=== PATIENT | female | born 1970 | race Caucasian/White ===

== ENCOUNTER 2018-09-12 11:05 | Day surgery (SDC) | payer BC, MEDICAID, MEDICARE ==
[2018-09-11 08:18] VITALS: BMI 40.9
[2018-09-12] MEDS ORDERED: Lactated Ringer's 500 ML IV ONE (12:09)
[2018-09-12] MEDS ORDERED: Propofol 10 mg/ml Inj (20 ML) ONE (13:59)
[2018-09-12] MEDS ORDERED: Midazolam 2 MG/2 ML VIAL ONE (13:59)
[2018-09-12] MEDS ORDERED: Silver Nitrate Topical - Stick ONE (14:26)
--- NOTE | 2018-09-12 14:41 | PCM.OP ---
Operative Report - Operative Report Date of Surgery/Procedure: 09/12/18 Time of Surgery/Procedure: 13:00 Surgeon: Marlo Anesthesia/Sedation: general mask Pre-Operative Diagnosis: abnormal uterine bleeding Post-Operative Diagnosis: endometrial polyp Indication for Surgery: abnormal uterine bleeding, thickened endometrium Operative Findings: 9cm uterus, 1.5cm uterine polyp on posterior endometrial wall, normal fallopian tube ostia Procedure/Operation Description: hysteroscopy, polypectomy, dilation and curettage Estimated Blood Loss: 2 Complications: none Discharge & Condition: follow up in 2 weeks
[2018-09-12] MEDS ORDERED: Lactated Ringer's 1,000 ML IV SCH (14:45)
[2018-09-12] MEDS ORDERED: Naloxone 0.4 mg/ml Inj (Adult) IVP PRN (14:45)
[2018-09-12] MEDS ORDERED: HYDROmorphone 0.5 mg/0.5 ml ISec IVP PRN (14:45)
[2018-09-12 15:42] VITALS: O2SAT 100
[2018-09-12 16:52] VITALS: RESP 18; TEMP 97.8
[2018-09-12 16:54] VITALS: BP 134/89; PULSE 72
--- NOTE | 2018-09-13 01:29 | OP ---
PROCEDURE DATE: 09/12/2018 SURGEON: El Sellers MD ANESTHESIA: General mask. PREOPERATIVE DIAGNOSES: Abnormal uterine bleeding, thickened endometrial lining. POSTOPERATIVE DIAGNOSES: Abnormal uterine bleeding, thickened endometrial lining, and endometrial polyp. INDICATION FOR SURGERY: Abnormal uterine bleeding, thickened endometrial lining, and endometrial polyp. OPERATIVE FINDINGS: A 9-cm sounded uterus, 1.5-cm uterine polyp on posterior endometrial wall, normal fallopian tube ostia bilaterally. PROCEDURE: Hysteroscopy, polypectomy, dilation and curettage. ESTIMATED BLOOD LOSS: 2 mL. COMPLICATIONS: None. DESCRIPTION OF PROCEDURE: The patient was taken to the operating room where general mask anesthesia was found to be adequate. She was then prepped and draped in a dorsal lithotomy position by Joe colorado. She was then prepped in a sterile fashion. A weighted speculum and vaginal wall retractor were used with adequate visualization of the cervix. Anterior lip of the cervix was grasped with a single-tooth tenaculum. The uterus sounded to 9 cm and serially dilated. Hysteroscopy was performed. On inspection, a 1.5-cm posterior endometrial wall polyp was noted. Normal fallopian tube ostia bilaterally were noted. No other lesions were noted. At this point, polyp forceps were used to retrieve the polyp followed by sharp curettings on the anterior, posterior and lateral wall of the endometrium. At this point, procedure was complete. Hemostasis was found to be adequate. All instruments were removed from the vagina. The patient tolerated the procedure well. Sponge, lap and needle counts were correct x2. El Sellers M.D.
== END 2018-09-12 16:54 | disposition home or self-care (01) ==
LOC: C.SDS 11:05
PROVIDERS: ATTEND Obstetrics & Gynecology
DX: N84.0 Polyp of corpus uteri (principal); N93.9 Abnormal uterine and vaginal bleeding, unspecified; R93.89 Abnormal findings on diagnostic imaging of other specified body structures
CPT/HCPCS: 58558; 88305; J1170; J2001; J2250; J2704; J3010; J7120